=== PATIENT | male | born 1940 | race Caucasian/White ===

== ENCOUNTER 2019-02-10 14:02 | Outpatient (CLI) | payer MEDICARE, OTHER | END 2019-02-10 23:59 | disposition home or self-care (01) | LOC: CVU 14:02 | PROVIDERS: ATTEND Registered Nurse | DX: I34.0 Nonrheumatic mitral (valve) insufficiency (principal); R55 Syncope and collapse | CPT/HCPCS: 93306; 93880 ==

== ENCOUNTER 2019-03-26 06:49 | Observation (INO) | payer MEDICARE, OTHER ==
[2019-03-24 13:43] VITALS: BP 127/63
[2019-03-24 13:54] LABS: BASOPHILS # (AUTO) 0.06 x10^3/uL (0-0.1); BASOPHILS % (AUTO) 1 % (0-1); EOSINOPHILS # (AUTO) 0.71 x10^3/uL (0-0.4); EOSINOPHILS % (AUTO) 13 % (1-7); LYMPHOCYTES # (AUTO) 1.43 x10^3/uL (1-3.4); LYMPHOCYTES % (AUTO) 26 % (22-44); MD NO; MEAN CORPUSCULAR HEMOGLOBIN 32.5 pg (27.5-34.5); MEAN CORPUSCULAR HGB CONC 33.6 g/dL (33.2-36.2); MEAN CORPUSCULAR VOLUME 96.6 fL (81-97); MEAN PLATELET VOLUME 7.6 fL (7.4-10.4); MONOCYTES # (AUTO) 0.71 x10^3/uL (0.2-0.8); MONOCYTES % (AUTO) 13 % (2-9); NEUTROPHILS # (AUTO) 2.56 x10^3/uL (1.8-6.8); NEUTROPHILS % (AUTO) 47 % (42-75); PLATELET COUNT 173 x10^3/uL (130-400); RED BLOOD COUNT 4.88 x10^6/uL (4.38-5.82); RED CELL DISTRIBUTION WIDTH 13.2 % (9.4-14.8)
[2019-03-24 14:01] LABS: ANION GAP 7 mmol/L (5-15); CALCIUM 8.7 mg/dL (8.5-10.1); CHLORIDE 110 mmol/L (98-107)
[~2019-03-26] VITALS: Ht 177.8 cm; Wt 78.3 kg
[~2019-03-26 06:49] MED LIST: ASPI-496 PO; FLUTICASONE NAS; LEVO75TA PO; MIRA50TA PO; OMEP20TA62 PO; OXYB5TAB10 PO; TAMS-11 PO
[2019-03-26] MEDS ORDERED: SODIUM CHLORIDE 0.9% 1,000 ML IV SCH (07:01)
[2019-03-26] MEDS ORDERED: FENTANYL PF 100 MCG/2ML ONE (07:20)
[2019-03-26] MEDS ORDERED: MIDAZOLAM 1 MG/ML, 5ML ONE (07:20)
[2019-03-26] MEDS ORDERED: VANCOMYCIN 500 MG ONE (07:21)
[2019-03-26] MEDS ORDERED: LIDOCAINE 2%, 20ML ONE (07:21)
[2019-03-26] MEDS ORDERED: VANCOMYCIN PMX 1GM/200ML 200 ML ONE (07:21)
[2019-03-26] MEDS ORDERED: VANCOMYCIN PMX 1GM/200ML 200 ML IVPB SCH (07:30)
[2019-03-26] MEDS ORDERED: PLEASE ENTER ALLERGIES MC SCH (07:30)
[2019-03-26] MEDS ORDERED: HOLD MEDICATION MC PRN (10:00)
[2019-03-26] MEDS ORDERED: ACETAMINOPHEN 325 MG TABLET PO PRN (10:00)
[2019-03-26] MEDS ORDERED: ONDANSETRON 2MG/ML, 2ML IV PRN (10:00)
[2019-03-26] MEDS ORDERED: VANCOMYCIN PMX 1GM/200ML 200 ML IVPB ONE (10:00)
[2019-03-26 14:00] VITALS: BP 126/85
[2019-03-26] MEDS ORDERED: TAMSULOSIN 0.4 MG CAP.ER.24H PO SCH (20:00)
[2019-03-26] MEDS ORDERED: OXYBUTYNIN CHLORIDE 5 MG TABLET PO SCH (20:00)
[2019-03-26 22:00] VITALS: BP 120/80
[2019-03-26] MEDS: SODIUM CHLORIDE FLUSH 10ML SYR IVF SCH (22:00)
[2019-03-27 02:52] VITALS: BP 148/84
[2019-03-27 05:29] VITALS: BP 143/90
[2019-03-27] MEDS ORDERED: LEVOTHYROXINE 75 MCG TABLET PO SCH (06:00)
[2019-03-27] MEDS ORDERED: ASPIRIN 81 MG TABLET EC PO SCH (09:00)
[2019-03-27] MEDS: SODIUM CHLORIDE FLUSH 10ML SYR IVF SCH (09:00)
[2019-03-27] MEDS ORDERED: FLUTICASONE NASAL SPRAY 16GM NAS SCH (09:00)
[2019-03-27] MEDS ORDERED: (Mirabegron** (Myrbetriq**) 50 MG) PO SCH (09:00)
== END 2019-03-27 10:25 | disposition home or self-care (01) ==
LOC: CACL 06:49 → CCU 09:30 → CACL 11:00 → CCU 11:01 → 5SO 16:57 → DCLOUNGE 03-27 10:11
PROVIDERS: ADMIT Internal Medicine Cardiovascular Disease; ATTEND Internal Medicine Cardiovascular Disease
DX: I44.1 Atrioventricular block, second degree (principal); I34.0 Nonrheumatic mitral (valve) insufficiency; I26.09 Other pulmonary embolism with acute cor pulmonale; I82.411 Acute embolism and thrombosis of right femoral vein; R55 Syncope and collapse; G47.30 Sleep apnea, unspecified; E03.9 Hypothyroidism, unspecified; I82.409 Acute embolism and thrombosis of unspecified deep veins of unspecified lower extremity; I49.5 Sick sinus syndrome; Z79.82 Long term (current) use of aspirin; Z79.899 Other long term (current) drug therapy
CPT/HCPCS: 33208; 36005; 36415; 71045; 71046; 80048; 85025; 99156; 99157; C1779; C1785; C1892; G0378; J2250; J3010; J3370; J3490; Q9967

== ENCOUNTER → 2019-12-15 | Outpatient (CLI) | payer MEDICARE, OTHER | END | disposition home or self-care (01) | LOC: RAD 09:30 | PROVIDERS: ATTEND Nurse Practitioner Family | DX: I63.81 Other cerebral infarction due to occlusion or stenosis of small artery (principal); G31.9 Degenerative disease of nervous system, unspecified; I99.8 Other disorder of circulatory system; Z91.81 History of falling | CPT/HCPCS: 70551 ==